=== PATIENT | female | born 1995 | race Caucasian/White ===

== ENCOUNTER 2025-09-12 10:12 | Emergency (ER) | payer BC ==
[2025-09-12 10:40] LABS: Pregnancy Test - Urine (BHCG) Negative (Negative); Pregu Control Background? CLEAR/WHITE (CLR/WHITE); Pregu Control Bar Appear? YES (CONTROL BAR)
[2025-09-12 10:43] LABS: CAUTI Indications for Culture Dysuria,urgency,freq; Glucose, Urine (Dipstick) Normal (Negative); Leukocyte 75 Leu/uL (Negative); Protein, Urine (Dipstick) 20 mg/dL (Neg-Trace); Specific Gravity, Urine 1.025 (1.002-1.036)
[2025-09-12 10:53] LABS: Bacteria/HPF 1+ HPF (None Seen)
[2025-09-12 10:54] LABS: Urine Culture Reflex Yes Yes
[2025-09-12] MEDS ORDERED: cefTRIAXone (ROCEPHIN) 1 GM VIAL ONE (12:03)
[2025-09-12 14:20] LABS: #Basophils Less than 0.03 10x3/uL (0.0-0.2); #Eosinophils Less than 0.03 10x3/uL (0.0-0.7); #Monocytes 0.52 10x3/uL (0.11-0.59); #Neutrophils 5.64 10x3/uL (1.40-6.50); %Basophils 0.3 % (0.0-1.0); %Eosinophils 0.1 % (0.0-10.0); %Lymphocytes 17.0 % (21.0-51.0); %Monocytes 6.9 % (0.0-10.0); %Neutrophils 75.3 % (42.0-75.0); Hematocrit 37.7 % (36.0-47.0); Hemoglobin 12.4 g/dL (12.0-16.0); Mean Corpuscular Hemoglobin 28.6 pg (27.0-31.0); Mean Corpuscular Volume 86.9 fL (78.0-98.0); Platelet Count 335 10x3/uL (130-400); Red Blood Cell (RBC) Count 4.34 mill/uL (4.20-5.40); White Blood Cell (WBC) Count 7.49 10x3/uL (4.8-10.8)
[2025-09-12 14:49] LABS: ALT (SGPT) 38 U/L (Less than 34); AST (SGOT) 15 U/L (11-34); Albumin 4.5 g/dL (3.1-4.5); Alkaline Phosphatase 61 U/L (40-110); Anion Gap 14 mmol/L (10-20); BUN (Urea Nitrogen) 13 mg/dL (7.0-18.7); Bilirubin, Total 0.6 mg/dL (0.3-1.2); Calc. Creatinine Clearance 0 mL/min (70-130); Calcium 8.9 mg/dL (7.8-10.44); Carbon Dioxide 26 mmol/L (22-29); Chloride 108 mmol/L (98-107); Globulin 2.6 g/dL (2.4-3.5); Glucose 90 mg/dL (70-105); Lipase 28 U/L (8-78); Potassium 3.5 mmol/L (3.5-5.1); Sodium 144 mmol/L (136-145)
[2025-09-12] MEDS ORDERED: Fluconazole 100 MG TAB ONE (16:11)
[2025-09-12 23:25] LABS: Chlamydia by PCR, Vaginal Swab Not Detected (NotDetected); GC by PCR, Vaginal Swab Not Detected (NotDetected)
== END 2025-09-12 16:20 | disposition home or self-care (01) ==
LOC: ERS 10:12
DX: N39.0 Urinary tract infection, site not specified (principal); N76.0 Acute vaginitis; B37.9 Candidiasis, unspecified; F17.290 Nicotine dependence, other tobacco product, uncomplicated
CPT/HCPCS: 36415; 76705; 76856; 80053; 81001; 81025; 83690; 85025; 87077; 87086; 87480; 87491; 87510; 87591; 87660; 93005; 96361; 96374; J0696; Q0162